=== PATIENT | female | born 1995 | race Hispanic/Latino ===

== ENCOUNTER 2017-08-17 11:46 | Emergency (ER) | payer SELFPAY ==
--- NOTE | 2017-08-17 12:54 | RAD ---
CHEST TWO VIEWS: History: Cough. Comparison: 09-13-09 FINDINGS: Lungs are clear. No pneumothorax or effusion. Cardiac silhouette and mediastinal contours are within normal limits. IMPRESSION: No acute intrathoracic abnormality. POS: [facility]
== END 2017-08-17 13:02 | disposition home or self-care (01) ==
LOC: ERS 11:46
DX: R05 Cough (principal); F41.9 Anxiety disorder, unspecified; F32.9 Major depressive disorder, single episode, unspecified; F17.210 Nicotine dependence, cigarettes, uncomplicated
CPT/HCPCS: 71046

== ENCOUNTER 2018-01-06 07:42 | Emergency (ER) | payer SELFPAY ==
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
== END 2018-01-06 09:51 | disposition home or self-care (01) ==
LOC: ERS 07:42
DX: T74.11XA Adult physical abuse, confirmed, initial encounter (principal); S00.12XA Contusion of left eyelid and periocular area, initial encounter; F41.9 Anxiety disorder, unspecified; F32.9 Major depressive disorder, single episode, unspecified; F90.9 Attention-deficit hyperactivity disorder, unspecified type; F17.210 Nicotine dependence, cigarettes, uncomplicated; Y09 Assault by unspecified means
CPT/HCPCS: 70150; 70486

== ENCOUNTER 2018-09-25 03:25 | Emergency (ER) | payer SELFPAY ==
[2018-09-25] MEDS ORDERED: Dexamethasone 10 MG/ML VIAL ONE (03:40)
== END 2018-09-25 03:44 | disposition home or self-care (01) ==
LOC: ERS 03:25
DX: J02.9 Acute pharyngitis, unspecified (principal); F32.9 Major depressive disorder, single episode, unspecified; F41.9 Anxiety disorder, unspecified; F90.9 Attention-deficit hyperactivity disorder, unspecified type; F17.210 Nicotine dependence, cigarettes, uncomplicated; Z71.6 Tobacco abuse counseling
CPT/HCPCS: 99406; J1100

== ENCOUNTER 2021-10-18 14:49 | Emergency (ER) | payer SELFPAY | END 2021-10-18 17:55 | disposition home or self-care (01) | LOC: ERS 14:49 | DX: B37.3 Candidiasis of vulva and vagina (principal); F17.210 Nicotine dependence, cigarettes, uncomplicated; F17.290 Nicotine dependence, other tobacco product, uncomplicated | CPT/HCPCS: 99282 ==

== ENCOUNTER 2022-02-06 08:57 | Emergency (ER) | payer OTHER, SELFPAY ==
[2022-02-06 09:31] LABS: Bacteria/HPF 2+ HPF (None Seen); Bilirubin Negative (Negative); Blood, Urine 3+ (Negative); Clarity Extra Turbid (Clear); Glucose, Urine (Dipstick) Normal (Negative); Ketone, Urine Negative (Negative); Leukocyte 500 Leu/uL (Negative); Nitrite Negative (Negative); Protein, Urine (Dipstick) 200 mg/dL (Neg-Trace); RBC/HPF Greater than 50 HPF (0-3); Specific Gravity, Urine 1.026 (1.002-1.036); Squamous Epithelial 0-3 HPF (0-3); Urobilinogen Normal mg/dL (Less than 2); WBC/HPF Greater than 50 HPF (0-3)
[2022-02-06 09:32] LABS: Pregnancy Test - Urine (BHCG) Negative (Negative); Pregu Control Background? CLEAR/WHITE (CLR/WHITE); Pregu Control Bar Appear? YES (CONTROL BAR); Specific Gravity 1.026 (1.002-1.036)
== END 2022-02-06 10:00 | disposition home or self-care (01) ==
LOC: ERS 08:57
DX: N39.0 Urinary tract infection, site not specified (principal); R31.9 Hematuria, unspecified; F17.210 Nicotine dependence, cigarettes, uncomplicated
CPT/HCPCS: 81003; 81015; 81025; 87077; 87086; 87186; 99283

== ENCOUNTER 2022-03-18 02:41 | Emergency (ER) | payer OTHER | END 2022-03-18 04:08 | LOC: ERS 02:41 | DX: F19.129 Other psychoactive substance abuse with intoxication, unspecified (principal); F17.210 Nicotine dependence, cigarettes, uncomplicated; F17.290 Nicotine dependence, other tobacco product, uncomplicated | CPT/HCPCS: 71045 ==

== ENCOUNTER 2022-04-25 07:51 | Emergency (ER) | payer OTHER ==
[2022-04-25] MEDS ORDERED: Ondansetron PF 4 MG/2 ML Vial ONE (08:00)
[2022-04-25] MEDS ORDERED: Morphine 4 MG/ML VIAL ONE ×2 (08:00→09:21)
[2022-04-25 08:25] LABS: #Basophils 0.1 thou/uL (0.0-0.2); #Eosinphils 0.1 thou/uL (0.0-0.7); #Lymphocytes 2.1 thou/uL (1.20-3.40); #Monocytes 0.7 thou/uL (0.11-0.59); #Neutrophils 9.1 thou/uL (1.40-6.50); %Basophils 0.5 % (0.0-1.0); %Eosinophils 0.8 % (0.0-10.0); %Lymphocytes 17.3 % (21.0-51.0); %Monocytes 5.6 % (0.0-10.0); %Neutrophils 75.8 % (42.0-75.0); Hemoglobin 11.1 g/dL (12.0-16.0); Mean Corpuscular HGB CONC 30.7 g/dL (32.0-36.0); Mean Corpuscular Hemoglobin 25.6 pg (27.0-31.0); Mean Corpuscular Volume 83.2 fL (78.0-98.0); Mean Platelet Volume 7.8 fL (7.4-10.4); Platelet Count 368 thou/uL (130-400); RBC Distribution Width 16.4 % (11.5-14.5); Red Blood Cell (RBC) Count 4.34 mill/uL (4.20-5.40); White Blood Cell (WBC) Count 11.9 thou/uL (4.8-10.8)
[2022-04-25 08:41] LABS: ALT (SGPT) 13 U/L (8-55); AST (SGOT) 18 U/L (5-34); Albumin 4.1 g/dL (3.5-5.0); Alcohol Less than 10 mg/dL (Less than 10); Alkaline Phosphatase 62 U/L (40-110); Anion Gap 14 mmol/L (10-20); BUN (Urea Nitrogen) 13 mg/dL (7.0-18.7); Bilirubin, Total 0.3 mg/dL (0.2-1.2); Calc. Creatinine Clearance 0 mL/min (70-130); Calcium 8.6 mg/dL (7.8-10.44); Carbon Dioxide 17 mmol/L (22-29); Chloride 108 mmol/L (98-107); Estimated GFR 120; Globulin 3.1 g/dL (2.4-3.5); Glucose 115 mg/dL (70-105); Lipase 31 U/L (8-78); Potassium 3.6 mmol/L (3.5-5.1); Protein, Total 7.2 g/dL (6.0-8.3); Sodium 135 mmol/L (136-145)
[2022-04-25 08:46] LABS: PTT 28.1 sec (22.9-36.1); Prothrombin Time 13.1 sec (12.0-14.7)
[2022-04-25] MEDS ORDERED: Lidocaine 2% PF 5 ML VIAL ONE ×2 (09:08→09:10)
[2022-04-25] MEDS ORDERED: CEFAZOLIN 2 GM VIAL ONE (09:08)
[2022-04-25] MEDS ORDERED: Iopamidol-370 76% 500 ML 1 ML ONE (09:18)
== END 2022-04-25 10:49 | disposition home or self-care (01) ==
LOC: ERS 07:51
DX: S91.011A Laceration without foreign body, right ankle, initial encounter (principal); S91.012A Laceration without foreign body, left ankle, initial encounter; S90.812A Abrasion, left foot, initial encounter; F17.210 Nicotine dependence, cigarettes, uncomplicated; V47.5XXA Car driver injured in collision with fixed or stationary object in traffic accident, initial encounter; Y92.410 Unspecified street and highway as the place of occurrence of the external cause
CPT/HCPCS: 12005; 70450; 71045; 71260; 72125; 74177; 80053; 80307; 83690; 85025; 85610; 85730; 94760; 96374; 96375; 96376; G0390; J0690; J2001; J2270; J2405; Q9967

== ENCOUNTER 2025-04-16 17:36 | Emergency (ER) | payer BC, OTHER ==
[2025-04-16 19:01] LABS: Pregnancy Test - Urine (BHCG) POSITIVE (Negative); Pregu Control Background? CLEAR/WHITE (CLR/WHITE); Pregu Control Bar Appear? YES (CONTROL BAR)
[2025-04-16 19:06] LABS: CAUTI Indications for Culture Dysuria,urgency,freq; Glucose, Urine (Dipstick) Normal (Negative); Leukocyte 250 Leu/uL (Negative); Protein, Urine (Dipstick) Negative (Neg-Trace); Specific Gravity, Urine 1.030 (1.002-1.036)
[2025-04-16 19:20] LABS: RBC/HPF 0-3 HPF (0-3)
[2025-04-16 19:21] LABS: Bacteria/HPF Rare-Few HPF (None Seen)
[2025-04-16 19:22] LABS: Urine Culture Reflex Yes Yes
[2025-04-16 19:50] LABS: #Basophils 0.03 10x3/uL (0.0-0.2); #Eosinophils 0.03 10x3/uL (0.0-0.7); #Monocytes 0.60 10x3/uL (0.11-0.59); #Neutrophils 7.92 10x3/uL (1.40-6.50); %Basophils 0.3 % (0.0-1.0); %Eosinophils 0.3 % (0.0-10.0); %Lymphocytes 17.4 % (21.0-51.0); %Monocytes 5.8 % (0.0-10.0); %Neutrophils 75.9 % (42.0-75.0); Hematocrit 36.7 % (36.0-47.0); Hemoglobin 11.6 g/dL (12.0-16.0); Mean Corpuscular Hemoglobin 30.6 pg (27.0-31.0); Mean Corpuscular Volume 96.8 fL (78.0-98.0); Platelet Count 264 10x3/uL (130-400); Red Blood Cell (RBC) Count 3.79 mill/uL (4.20-5.40); White Blood Cell (WBC) Count 10.42 10x3/uL (4.8-10.8)
[2025-04-16 20:09] LABS: ALT (SGPT) 22 U/L (Less than 34); AST (SGOT) 25 U/L (11-34); Albumin 3.0 g/dL (3.1-4.5); Alkaline Phosphatase 46 U/L (40-110); Anion Gap 15 mmol/L (10-20); BUN (Urea Nitrogen) 10 mg/dL (7.0-18.7); Bilirubin, Total 0.2 mg/dL (0.3-1.2); Calc. Creatinine Clearance 0 mL/min (70-130); Calcium 8.4 mg/dL (7.8-10.44); Carbon Dioxide 19 mmol/L (22-29); Chloride 108 mmol/L (98-107); Globulin 3.0 g/dL (2.4-3.5); Glucose 71 mg/dL (70-105); Lipase 17 U/L (8-78); Potassium 3.8 mmol/L (3.5-5.1); Sodium 138 mmol/L (136-145)
== END 2025-04-16 21:03 | disposition home or self-care (01) ==
LOC: ERS 17:36
DX: O23.91 Unspecified genitourinary tract infection in pregnancy, first trimester (principal); R82.71 Bacteriuria; O99.331 Smoking (tobacco) complicating pregnancy, first trimester; F17.290 Nicotine dependence, other tobacco product, uncomplicated; Z3A.11 11 weeks gestation of pregnancy
CPT/HCPCS: 36415; 80053; 81001; 81025; 83690; 84702; 85025; 86850; 86900; 86901; 87086; 99283

== ENCOUNTER 2025-07-11 11:48 | Emergency (ER) | payer OTHER | END 2025-07-11 15:20 | disposition home or self-care (01) | LOC: ERS 11:48 | DX: O99.891 Other specified diseases and conditions complicating pregnancy (principal); R10.30 Lower abdominal pain, unspecified; O99.333 Smoking (tobacco) complicating pregnancy, third trimester; F17.290 Nicotine dependence, other tobacco product, uncomplicated; Z3A.32 32 weeks gestation of pregnancy; W18.30XA Fall on same level, unspecified, initial encounter | CPT/HCPCS: 76819 ==